=== PATIENT | male | born 1960 | race Caucasian/White ===

== ENCOUNTER 2020-10-11 04:14 | Inpatient (IN) | payer MEDICARE, OTHER ==
[2020-10-11] MEDS ORDERED: VANCOMYCIN 1,000 MG VIAL (RESTRICTED TO ID ONLY) IVPB ONE (07:13)
[2020-10-11] MEDS ORDERED: ONDANSETRON 4 MG/2 ML VIAL ONE (07:32)
[2020-10-11] MEDS ORDERED: DEXAMETHASONE SOD PHOSPHATE 4 MG/1 ML VIAL ONE (07:32)
[2020-10-11] MEDS ORDERED: fentaNYL CITRATE 250 MCG/5 ML VIAL ONE (07:32)
[2020-10-11] MEDS ORDERED: SUCCINYLCHOLINE CHLORIDE 200 MG/10 ML SYRINGE ONE (07:33)
[2020-10-11] MEDS ORDERED: MIDAZOLAM HCL 2 MG/2 ML SINGLE DOSE VIAL ONE (07:33)
[2020-10-11] MEDS ORDERED: ROCURONIUM BROMIDE 50 MG/5 ML SYRINGE ONE ×2 (07:33→09:36)
[2020-10-11] MEDS ORDERED: PROPOFOL 20 ML ONE (07:33)
[2020-10-11] MEDS ORDERED: GENTAMICIN SO4 80 MG/2 ML VIAL ONE (07:36)
[2020-10-11] MEDS ORDERED: BUPIVACAINE HCL/PF 0.5% (5MG/ML) 10 ML VIAL ONE (07:36)
[2020-10-11] MEDS ORDERED: LIDOCAINE HCL 1% EPINEPHRINE 1:200,000 30 ML VIAL (PF) ONE (07:36)
[2020-10-11] MEDS ORDERED: THROMBIN (BOVINE) 5,000 UNIT VIAL TP ONE ×2 (07:37→08:50)
[2020-10-11] MEDS ORDERED: VANCOMYCIN 1,000 MG VIAL (RESTRICTED TO ID ONLY) ONE (08:06)
[2020-10-11] MEDS ORDERED: ceFAZolin SODIUM 1 GM VIAL IVPB ONE (08:25)
[2020-10-11] MEDS ORDERED: ceFAZolin SODIUM 1 GM VIAL ONE (08:38)
[2020-10-11] MEDS ORDERED: TRANEXAMIC ACID 1000 MG/10 ML VIAL ONE (08:38)
[2020-10-11] MEDS ORDERED: GENTAMICIN SO4 80 MG/2 ML VIAL IVPB ONE (09:01)
[2020-10-11] MEDS ORDERED: BACITRACIN 50,000 UNITS VIAL TP ONE (09:10)
[2020-10-11] MEDS ORDERED: HYDROGEN PEROXIDE 473 ML PO ONE (09:11)
[2020-10-11] MEDS ORDERED: ACETAMINOPHEN INJECTION 100 ML IVPB ONE (09:59)
[2020-10-11] MEDS ORDERED: NEOSTIGMINE METHYLSULFATE 0.5 MG/1 ML - 10 ML MDV ONE (10:15)
[2020-10-11] MEDS ORDERED: GLYCOPYRROLATE 0.2 MG/1 ML VIAL ONE (10:16)
[2020-10-11] MEDS: LACTATED RINGERS SOLUTION 1,000 ML IV SCH ×2 (10:44→22:05)
[2020-10-11] MEDS ORDERED: oxyCODONE HCL 5 MG TABLET PO PRN (10:46)
[2020-10-11] MEDS ORDERED: ONDANSETRON 4 MG/2 ML VIAL IVPUSH PRN (10:46)
[2020-10-11] MEDS ORDERED: HYDROmorphone HCl 2 MG/ML VIAL SQ PRN (10:46)
[2020-10-11] MEDS ORDERED: CEFAZOLIN 2 GM/D5W 2 GM/50 ML ML IVPB SCH (14:00)
[2020-10-11] MEDS: ceFAZolin SODIUM 1 GM VIAL ONE ×2 (18:16→18:30)
[2020-10-11] MEDS: CEFAZOLIN 2 GM/D5W 2 GM/50 ML ML IVPB SCH (18:16)
[2020-10-11] MEDS: oxyCODONE HCL 5 MG TABLET PO PRN ×3 (18:30→22:57)
[2020-10-11] MEDS ORDERED: oxyCODONE HCL 5 MG TABLET ONE (18:44)
[2020-10-11] MEDS ORDERED: ATORVASTATIN CA 20 MG TABLET (FP) PO SCH (22:00)
[2020-10-12] MEDS: CEFAZOLIN 2 GM/D5W 2 GM/50 ML ML IVPB SCH ×2 (00:44→10:24)
[2020-10-12 01:46] VITALS: BMI 45.3
[2020-10-12] MEDS: LACTATED RINGERS SOLUTION 1,000 ML IV SCH (04:38)
[2020-10-12] MEDS: oxyCODONE HCL 5 MG TABLET PO PRN (04:43)
[2020-10-12] MEDS ORDERED: PATIENT'S OWN MEDICATION (NON-FORMULARY) (Losartan/Hydrochlorothiazide [Losartan-Hctz 100- PO SCH (10:00)
[2020-10-12] MEDS ORDERED: LOSARTAN POTASSIUM 50 MG TABLET PO SCH (10:00)
[2020-10-12] MEDS ORDERED: HYDROCHLOROTHIAZIDE 25 MG TABLET (FP) PO SCH (10:00)
[2020-10-12 11:44] VITALS: BP 120/60; PULSE 52; TEMP 98.4
== END 2020-10-12 14:10 | disposition home or self-care (01) | DRG 321 ==
LOC: J2C 04:14 → J8W 20:49
PROVIDERS: ADMIT Neurological Surgery
PROC: 0RB30ZZ Excision of Cervical Vertebral Disc, Open Approach (ICD-10-PCS; 2020-10-11)
PROC: 01N10ZZ Release Cervical Nerve, Open Approach (ICD-10-PCS; 2020-10-11)
PROC: B01BZZZ Fluoroscopy of Spinal Cord (ICD-10-PCS; 2020-10-11)
PROC: 4A1004G Monitoring of Central Nervous Electrical Activity, Intraoperative, Open Approach (ICD-10-PCS; 2020-10-11)
PROC: 0RG20A0 Fusion of 2 or more Cervical Vertebral Joints with Interbody Fusion Device, Anterior Approach, Anterior Column, Open Approach (ICD-10-PCS; principal; 2020-10-11 08:00)
DX: M43.02 Spondylolysis, cervical region (principal); M47.12 Other spondylosis with myelopathy, cervical region; M47.22 Other spondylosis with radiculopathy, cervical region; M48.02 Spinal stenosis, cervical region; M40.202 Unspecified kyphosis, cervical region; E66.01 Morbid (severe) obesity due to excess calories; Z68.42 Body mass index [BMI] 45.0-49.9, adult; E78.00 Pure hypercholesterolemia, unspecified; I10 Essential (primary) hypertension; E78.5 Hyperlipidemia, unspecified
CPT/HCPCS: 72125-TC; 76000-TC-FY; 86922; 94760; 97116-GP; 97161-GP; J0131

== ENCOUNTER 2021-11-27 04:03 | Day surgery (SDC) | payer OTHER ==
[2021-11-24 10:49] VITALS: BMI 43.2
[2021-11-27 07:00] LABS: HEMATOCRIT 47.5 % (35.4-49); MCHC 33.6 g/dl (32.0-35.9); MEAN CELL VOLUME 89.3 fl (80-96); MEAN PLT VOLUME 9.7 fl (7.5-11.1); PLATELET COUNT 213 10^3/uL (134-434); RBC 5.32 M/mm3 (4.00-5.60); RDW 14.8 % (11.9-15.9); WHITE BLOOD COUNT 8.5 K/mm3 (4.0-10.0)
[2021-11-27 07:07] LABS: INR 1.1 (0.83-1.09); PROTHROMBIN TIME (PATIENT) 12.7 SEC (9.7-13.0)
[2021-11-27 07:10] LABS: ACTIVATED PTT 34.4 SECONDS (25.2-36.5)
[2021-11-27 07:20] LABS: ALBUMIN 3.7 g/dl (3.4-5.0); BLOOD UREA NITROGEN 26.3 mg/dL (7-18)
[2021-11-27 07:23] LABS: CREATININE 0.9 mg/dL (0.55-1.3)
[2021-11-27 07:24] LABS: BILIRUBIN,TOTAL 0.4 mg/dL (0.2-1); TOT PROT 7.2 g/dl (6.4-8.2)
[2021-11-27] MEDS ORDERED: SUCCINYLCHOLINE CHLORIDE 200 MG/10 ML SYRINGE ONE (07:24)
[2021-11-27] MEDS ORDERED: LIDOCAINE HCL/PF (2%) 40 MG/2 ML VIAL ONE (07:24)
[2021-11-27] MEDS ORDERED: PROPOFOL 20 ML ONE (07:24)
[2021-11-27] MEDS ORDERED: DEXAMETHASONE SOD PHOSPHATE 4 MG/1 ML VIAL ONE (07:24)
[2021-11-27] MEDS ORDERED: MIDAZOLAM HCL 2 MG/2 ML SINGLE DOSE VIAL ONE (07:24)
[2021-11-27] MEDS ORDERED: ONDANSETRON 4 MG/2 ML VIAL ONE (07:24)
[2021-11-27] MEDS ORDERED: ROPIVACAINE HCL 0.5% 30ML VIAL ONE (07:41)
[2021-11-27] MEDS ORDERED: DEXAMETHASONE SOD PHOSPHATE 10 MG/1 ML VIAL ONE (07:41)
[2021-11-27 08:20] LABS: URINE APPEARANCE CLEAR; URINE BILIRUBIN NEGATIVE (NEGATIVE); URINE COLOR YELLOW; URINE GLUCOSE (UA) NEGATIVE (NEGATIVE); URINE KETONE NEGATIVE (NEGATIVE); URINE LEUK ESTERASE NEGATIVE (NEGATIVE); URINE NITRITE NEGATIVE (NEGATIVE); URINE PROTEIN NEGATIVE (NEGATIVE); URINE UROBILINOGEN 0.2 mg/dL (0.2-1.0)
[2021-11-27] MEDS ORDERED: ceFAZolin SODIUM 1 GM VIAL ONE (08:43)
[2021-11-27] MEDS ORDERED: ceFAZolin SODIUM 1 GM VIAL IVPB ONE (08:44)
[2021-11-27] MEDS ORDERED: LIDOCAINE HCL 1%, 10 MG/ML (20ML VIAL) ONE ×2 (08:53→13:24)
[2021-11-27] MEDS ORDERED: BUPIVACAINE HCL/PF 0.5% (5MG/ML) 10 ML VIAL ONE (08:54)
[2021-11-27] MEDS ORDERED: LIDOCAINE HCL 1%, 10 MG/ML (20ML VIAL) NR ONE (08:58)
[2021-11-27] MEDS ORDERED: BUPIVACAINE HCL/PF 0.5% (5MG/ML) 10 ML VIAL IJ ONE (08:58)
[2021-11-27] MEDS ORDERED: ONDANSETRON 4 MG/2 ML VIAL IVPUSH PRN (10:47)
[2021-11-27] MEDS ORDERED: oxyCODONE HCL 5 MG TABLET PO PRN (10:47)
[2021-11-27] MEDS ORDERED: LACTATED RINGERS SOLUTION 1,000 ML IV SCH (11:00)
[2021-11-27 12:07] VITALS: RESP 20
[2021-11-27 13:44] VITALS: BP 120/56; PULSE 62; TEMP 97.5
== END 2021-11-27 13:30 | disposition home or self-care (01) ==
LOC: JASU-SURG 04:03
PROVIDERS: ATTEND Orthopaedic Surgery
PROC: 0LM24ZZ Reattachment of Left Shoulder Tendon, Percutaneous Endoscopic Approach (ICD-10-PCS; 2021-11-27)
PROC: 0RNK4ZZ Release Left Shoulder Joint, Percutaneous Endoscopic Approach (ICD-10-PCS; principal; 2021-11-27 08:00)
DX: M75.42 Impingement syndrome of left shoulder (principal); M75.102 Unspecified rotator cuff tear or rupture of left shoulder, not specified as traumatic; M19.012 Primary osteoarthritis, left shoulder
CPT/HCPCS: 29824; 29826; 29827; C9781; L8699; 36415; 80053; 81003; 85027; 85610; 85730; 94760; C1713; C1889; J1100

== ENCOUNTER 2022-07-11 04:02 | Day surgery (SDC) | payer OTHER ==
[2022-07-09 11:21] VITALS: BMI 40.3
[2022-07-11] MEDS ORDERED: MIDAZOLAM HCL 2 MG/2 ML SINGLE DOSE VIAL ONE (07:41)
[2022-07-11] MEDS ORDERED: PROPOFOL 20 ML ONE ×2 (07:41→08:56)
[2022-07-11] MEDS ORDERED: BUPIVACAINE HCL/PF 0.5% (5MG/ML) 10 ML VIAL ONE (07:48)
[2022-07-11] MEDS ORDERED: DEXAMETHASONE SOD PHOSPHATE 10 MG/1 ML VIAL ONE (07:48)
[2022-07-11] MEDS ORDERED: DEXAMETHASONE SOD PHOSPHATE 4 MG/1 ML VIAL ONE (08:24)
[2022-07-11] MEDS ORDERED: ONDANSETRON 4 MG/2 ML VIAL ONE (08:24)
[2022-07-11] MEDS ORDERED: ceFAZolin SODIUM 1 GM VIAL IVPB ONE (08:35)
[2022-07-11] MEDS ORDERED: ceFAZolin SODIUM 1 GM VIAL ONE (08:38)
[2022-07-11] MEDS ORDERED: ONDANSETRON 4 MG/2 ML VIAL IVPUSH PRN (09:54)
[2022-07-11] MEDS ORDERED: LACTATED RINGERS SOLUTION 1,000 ML IV SCH (10:00)
[2022-07-11] MEDS ORDERED: ACETAMINOPHEN 500 MG TABLET (FP) PO ONE (12:31)
[2022-07-11] MEDS ORDERED: ACETAMINOPHEN 500 MG TABLET (FP) ONE ×2 (12:32)
[2022-07-11 12:42] VITALS: RESP 18
[2022-07-11 13:08] VITALS: BP 126/74; PULSE 78; TEMP 98
== END 2022-07-11 13:10 | disposition home or self-care (01) ==
LOC: JASU-SURG 04:02
PROVIDERS: ATTEND Orthopaedic Surgery
PROC: 0RNJ4ZZ Release Right Shoulder Joint, Percutaneous Endoscopic Approach (ICD-10-PCS; 2022-07-11)
PROC: 0LM14ZZ Reattachment of Right Shoulder Tendon, Percutaneous Endoscopic Approach (ICD-10-PCS; 2022-07-11)
PROC: 0PB94ZZ Excision of Right Clavicle, Percutaneous Endoscopic Approach (ICD-10-PCS; principal; 2022-07-11 08:00)
PROC: 0LS34ZZ Reposition Right Upper Arm Tendon, Percutaneous Endoscopic Approach (ICD-10-PCS; 2022-07-11 08:00)
DX: M75.41 Impingement syndrome of right shoulder (principal); M19.011 Primary osteoarthritis, right shoulder; M75.101 Unspecified rotator cuff tear or rupture of right shoulder, not specified as traumatic; S46.211A Strain of muscle, fascia and tendon of other parts of biceps, right arm, initial encounter; X58.XXXA Exposure to other specified factors, initial encounter; Y93.9 Activity, unspecified; Y92.9 Unspecified place or not applicable; Y99.9 Unspecified external cause status
CPT/HCPCS: 29824; 29826; 29827; C1713; C9781; 94760; C1889; J1100